=== PATIENT | female | born 1980 | race Caucasian/White ===

== ENCOUNTER 2024-03-21 10:19 | Outpatient (CLI) | payer MEDICAID, SELFPAY ==
--- NOTE | 2024-03-21 10:23 | US_ITS ---
FINAL REPORT CLINICAL HISTORY: LT LOWER LEG MASS FINDINGS: ULTRASOUND SOFT TISSUES OF THE LEFT LOWER LEG TECHNIQUE: Limited sonographic imaging of the soft tissues of the left lower leg were obtained. FINDINGS: There is a 9 mm heterogeneous nodule at the area of clinical interest. This is of uncertain etiology and may represent a complex fluid collection. IMPRESSION: 9 mm heterogeneous nodule, in the lower leg, at the area of clinical interest. This is of uncertain etiology and may represent a complex fluid collection Reviewed, Interpreted and Dictated by Jose Guadalupe Dueñas III, MD Transcribed by Nargis Canas Authenticated and [facility]
== END 2024-03-21 23:59 | disposition home or self-care (01) ==
LOC: RAD 10:20
PROVIDERS: PCP Physician Assistant; Visit Provider Physician Assistant
DX: R22.42 Localized swelling, mass and lump, left lower limb (principal)
CPT/HCPCS: 76882

== ENCOUNTER 2024-04-05 10:44 | Outpatient (CLI) | payer MEDICAID, SELFPAY ==
--- NOTE | 2024-04-05 10:47 | XR_ITS ---
FINAL REPORT CLINICAL HISTORY: left leg pain FINDINGS: AP and lateral views of the left tibia and fibula were obtained. There is no prior exam for comparison. There is no acute fracture of the left tibia or fibula. The knee and ankle appear intact. The soft tissues are normal. IMPRESSION: No acute osseous abnormality of the left tibia or fibula. Reviewed, Interpreted and Dictated by Francia Baez MD Transcribed by Mara Breen Authenticated and . [facility]
== END 2024-04-05 23:59 | disposition home or self-care (01) ==
LOC: RAD 10:45
PROVIDERS: PCP Physician Assistant; Visit Provider Physician Assistant
DX: M79.662 Pain in left lower leg (principal); S89.92XA Unspecified injury of left lower leg, initial encounter
CPT/HCPCS: 73590

== ENCOUNTER 2024-04-18 13:37 | Outpatient (CLI) | payer MEDICAID, SELFPAY ==
--- NOTE | 2024-04-18 13:41 | MR_ITS ---
FINAL REPORT CLINICAL HISTORY: soft tissue mass, area marked with marker COMPARISON: None FINDINGS: Multiplanar MR imaging of the left lower leg was performed with and without contrast. A skin marker was placed at the anterior aspect of the distal left lower leg. On the inversion recovery images, there is moderate subcutaneous soft tissue edema at the site of the skin marker. There is no underlying marrow edema seen. There is no localized fluid collection or mass evident. IMPRESSION: Localized subcutaneous soft tissue edema corresponding to the site of the skin marker. No acute bony abnormality. Reviewed, Interpreted and Dictated by Hussain Moore MD Transcribed by Risa Fountain Authenticated and [facility]
== END 2024-04-18 23:59 | disposition home or self-care (01) ==
LOC: RAD 13:38
PROVIDERS: PCP Physician Assistant; Visit Provider Physician Assistant
DX: M79.89 Other specified soft tissue disorders (principal)
CPT/HCPCS: 73720; A9576